=== PATIENT | male | born 1980 | race Caucasian/White ===

== ENCOUNTER 2018-01-06 11:34 | Emergency (ER) | payer BC ==
[2018-01-06] MEDS ORDERED: Aspirin 325 MG TAB ONE (11:47)
[2018-01-06] MEDS ORDERED: Nitroglycerin 0.4 MG TAB (25 Tab Bottle) ONE (11:47)
[2018-01-06] MEDS ORDERED: Heparin 25,000 units/D5W 500 ML ONE (11:54)
[2018-01-06] MEDS ORDERED: Heparin 5,000 UNITS/ML VIAL ONE (11:55)
[2018-01-06 11:58] LABS: #Basophils 0.1 thou/uL (0.0-0.2); #Lymphocytes 2.3 thou/uL (1.20-3.40); #Monocytes 0.7 thou/uL (0.11-0.59); %Basophils 0.9 % (0.0-1.0); %Eosinophils 0.4 % (0.0-10.0); %Lymphocytes 18.9 % (21.0-51.0); %Neutrophils 73.8 % (42.0-75.0); Hemoglobin 15.5 g/dL (14.0-18.0); Mean Corpuscular HGB CONC 32.2 g/dL (32.0-36.0); Mean Corpuscular Hemoglobin 27.6 pg (27.0-31.0); Mean Corpuscular Volume 85.5 fL (78.0-98.0); Mean Platelet Volume 7.4 fL (7.4-10.4); Platelet Count 305 thou/uL (130-400); RBC Distribution Width 11.9 % (11.5-14.5); Red Blood Cell (RBC) Count 5.64 mill/uL (4.70-6.10); White Blood Cell (WBC) Count 12.1 thou/uL (4.8-10.8)
[2018-01-06 12:08] LABS: INR-International Normal Ratio 0.9
[2018-01-06] MEDS ORDERED: Fentanyl 100 MCG/2 ML VIAL ONE (12:08)
[2018-01-06 12:19] LABS: ALT (SGPT) 21 U/L (8-55); AST (SGOT) 23 U/L (5-34); Albumin 4.4 g/dL (3.5-5.0); Alkaline Phosphatase 120 U/L (40-150); Anion Gap 14 mmol/L (10-20); BUN (Urea Nitrogen) 11 mg/dL (8.9-20.6); Bilirubin, Total 0.5 mg/dL (0.2-1.2); Calc. Creatinine Clearance 0 mL/min (70-130); Calcium 9.6 mg/dL (7.8-10.44); Carbon Dioxide 23 mmol/L (22-29); Chloride 106 mmol/L (98-107); Estimated GFR-MDRD Greater than 90; Globulin 2.7 g/dL (2.4-3.5); Glucose 91 mg/dL (70-105); Potassium 3.8 mmol/L (3.5-5.1); Protein, Total 7.1 g/dL (6.0-8.3); Sodium 139 mmol/L (136-145)
[2018-01-06 12:58] LABS: Troponin I 2.023 ng/mL (< 0.028)
--- NOTE | 2018-01-06 13:33 | RAD ---
SINGLE VIEW OF THE CHEST: Comparison: None. History: Chest pain. FINDINGS: Single view of the chest shows a normal sized cardiomediastinal silhouette. There is no evidence of c onsolidation, mass, or pleural effusion. The bones are unremarkable. IMPRESSION: No evidence of acute cardiopulmonary disease. POS: [facility]
== END 2018-01-06 12:25 | disposition short-term general hospital (02) ==
LOC: MADERS 11:34
DX: I21.3 ST elevation (STEMI) myocardial infarction of unspecified site (principal); F32.9 Major depressive disorder, single episode, unspecified; F17.210 Nicotine dependence, cigarettes, uncomplicated
CPT/HCPCS: 71045; 80053; 83880; 84484; 85025; 85610; 93005; 96365; 96375; J1644; J3010